=== PATIENT | male | born 1990 | race Caucasian/White ===

== ENCOUNTER 2020-10-11 12:27 | Inpatient (IN) | payer OTHER ==
[2020-10-11 13:36] VITALS: BMI 27.0
[2020-10-11] MEDS ORDERED: ONDANSETRON *ODT* 4 MG TABLET SL PRN (14:14)
[2020-10-11] MEDS ORDERED: MAGNESIUM HYDROX 2400MG/30ML ORAL SUSPENSION 30 ML CUP PO PRN (14:14)
[2020-10-11] MEDS ORDERED: NICOTINE 10 MG CARTRIDGE (INHALER) IH PRN (14:14)
[2020-10-11] MEDS ORDERED: clonazePAM 0.5 MG ODT TABLETS SL PRN (14:14)
[2020-10-11] MEDS ORDERED: cloNIDine HCL 0.1 MG TABLET PO PRN (14:14)
[2020-10-11] MEDS ORDERED: MAGNESIUM CITRATE 300 ML BOTTLE PO PRN (14:14)
[2020-10-11] MEDS ORDERED: ACETAMINOPHEN 325 MG TABLET (FP) PO PRN ×2 (14:14)
[2020-10-11] MEDS ORDERED: MENTHOL/PHENOL 1 EACH UD MM PRN (14:14)
[2020-10-11] MEDS ORDERED: BISMUTH SUBSALICYLATE 262 MG/15 ML BTL PO PRN (14:14)
[2020-10-11] MEDS ORDERED: methaDONE HCL 10 MG TABLET (FOR DETOX USE ONLY) PO ONE (14:14)
[2020-10-11 16:27] LABS: HEMATOCRIT 39.5 % (35.4-49); MCH 26.3 pg (25.7-33.7); MCHC 32.9 g/dl (32.0-35.9); MEAN CELL VOLUME 79.8 fl (80-96); MEAN PLT VOLUME 8.4 fl (7.5-11.1); PLATELET COUNT 282 10^3/uL (134-434); RBC 4.96 M/mm3 (4.00-5.60); RDW 13.5 % (11.9-15.9); WHITE BLOOD COUNT 5.4 K/mm3 (4.0-10.0)
[2020-10-11 16:36] LABS: CALCIUM 8.9 mg/dL (8.5-10.1)
[2020-10-11 16:38] LABS: ALBUMIN 3.8 g/dl (3.4-5.0); BLOOD UREA NITROGEN 14.3 mg/dL (7-18)
[2020-10-11 16:40] LABS: CREATININE 0.9 mg/dL (0.55-1.3)
[2020-10-11 16:41] LABS: BILIRUBIN,TOTAL 1.5 mg/dL (0.2-1); TOT PROT 6.8 g/dl (6.4-8.2)
[2020-10-11] MEDS: PRENATAL VITAMINS W/ FOLIC ACID TABLET (FP) PO SCH (16:49)
[2020-10-11] MEDS: hydrOXYzine PAMOATE 25 MG CAPSULE (FP) PO SCH ×2 (17:22→22:15)
[2020-10-11 17:25] LABS: HIV INTERPRETATION NEGATIVE (NEGATIVE)
[2020-10-11] MEDS: MELATONIN 5 MG TABLETS PO SCH (22:14)
[2020-10-11] MEDS: THIAMINE HCL 100 MG TABLET (FP) PO SCH (22:15)
[2020-10-12] MEDS: hydrOXYzine PAMOATE 25 MG CAPSULE (FP) PO SCH (06:37)
[2020-10-12] MEDS ORDERED: methaDONE HCL 10 MG TABLET (FOR DETOX USE ONLY) ONE (08:53)
[2020-10-12] MEDS: PRENATAL VITAMINS W/ FOLIC ACID TABLET (FP) PO SCH (10:11)
[2020-10-12] MEDS: IBUPROFEN 400 MG TABLET (FP) PO PRN (10:15)
[2020-10-12] MEDS: METHOCARBAMOL 500 MG TABLET PO PRN ×2 (10:47→21:51)
[2020-10-12] MEDS: diazePAM 5 MG TABLET PO PRN ×2 (10:47→21:51)
[2020-10-12] MEDS: THIAMINE HCL 100 MG TABLET (FP) PO SCH (21:50)
[2020-10-12] MEDS: MELATONIN 5 MG TABLETS PO SCH (21:51)
[2020-10-13] MEDS ORDERED: methaDONE HCL 10 MG TABLET (FOR DETOX USE ONLY) PO ONE (10:00)
[2020-10-13] MEDS: hydrOXYzine PAMOATE 25 MG CAPSULE (FP) PO PRN ×3 (10:04→22:11)
[2020-10-13] MEDS: METHOCARBAMOL 500 MG TABLET PO PRN ×2 (10:04→22:11)
[2020-10-13] MEDS: diazePAM 5 MG TABLET PO PRN ×3 (10:04→22:11)
[2020-10-13] MEDS: PRENATAL VITAMINS W/ FOLIC ACID TABLET (FP) PO SCH (10:05)
[2020-10-13] MEDS: IBUPROFEN 400 MG TABLET (FP) PO PRN (18:04)
[2020-10-13] MEDS: MELATONIN 5 MG TABLETS PO SCH (22:11)
[2020-10-13] MEDS: THIAMINE HCL 100 MG TABLET (FP) PO SCH (22:11)
[2020-10-14] MEDS: diazePAM 5 MG TABLET PO PRN ×3 (05:45→22:09)
[2020-10-14] MEDS ORDERED: methaDONE HCL 10 MG TABLET (FOR DETOX USE ONLY) ONE (08:57)
[2020-10-14] MEDS: PRENATAL VITAMINS W/ FOLIC ACID TABLET (FP) PO SCH (10:08)
[2020-10-14] MEDS: METHOCARBAMOL 500 MG TABLET PO PRN (10:08)
[2020-10-14] MEDS: hydrOXYzine PAMOATE 25 MG CAPSULE (FP) PO PRN ×2 (10:09→22:09)
[2020-10-14] MEDS: IBUPROFEN 400 MG TABLET (FP) PO PRN (17:44)
[2020-10-14] MEDS: MELATONIN 5 MG TABLETS PO SCH (22:09)
[2020-10-14] MEDS: THIAMINE HCL 100 MG TABLET (FP) PO SCH (22:09)
[2020-10-15] MEDS: diazePAM 5 MG TABLET PO PRN (05:47)
[2020-10-15] MEDS: METHOCARBAMOL 500 MG TABLET PO PRN ×3 (05:48→22:25)
[2020-10-15] MEDS ORDERED: methaDONE HCL 10 MG TABLET (FOR DETOX USE ONLY) PO ONE (10:00)
[2020-10-15] MEDS: PRENATAL VITAMINS W/ FOLIC ACID TABLET (FP) PO SCH (10:17)
[2020-10-15] MEDS: hydrOXYzine PAMOATE 25 MG CAPSULE (FP) PO PRN (10:18)
[2020-10-15] MEDS ORDERED: MELATONIN 5 MG TABLETS PO SCH (11:01)
[2020-10-15] MEDS ORDERED: SUVOREXANT 10 MG TABLET PO PRN (22:00)
[2020-10-15] MEDS: THIAMINE HCL 100 MG TABLET (FP) PO SCH (22:23)
[2020-10-15] MEDS: MAG HYDROX/AL HYDROX/SIMETH 30 ML UNIT-DOSE CUP PO PRN (22:43)
[2020-10-16] MEDS: hydrOXYzine PAMOATE 25 MG CAPSULE (FP) PO PRN (04:15)
[2020-10-16] MEDS: MAG HYDROX/AL HYDROX/SIMETH 30 ML UNIT-DOSE CUP PO PRN (04:15)
[2020-10-16 07:15] VITALS: BP 114/75; PULSE 86; TEMP 97
== END 2020-10-16 10:05 | disposition home or self-care (01) | DRG 773 ==
LOC: EDBD 12:27 → YASAS 12:27 → Y3N 14:06
PROVIDERS: ADMIT Allergy & Immunology; ATTEND Allergy & Immunology
PROC: HZ2ZZZZ Detoxification Services for Substance Abuse Treatment (ICD-10-PCS; principal; 2020-10-11)
DX: F11.20 Opioid dependence, uncomplicated (principal); F17.210 Nicotine dependence, cigarettes, uncomplicated
CPT/HCPCS: 36415; 80053; 85027; 86780; 87389; C9803; J0735; U0003; U0005